=== PATIENT | female | born 1975 | race American Indian/Alaskan Native ===

== ENCOUNTER 2020-05-12 12:01 | Outpatient (CLI) | payer OTHER ==
[~2020-05-12 12:01] MED LIST: LIDOCAINE 2%/EPINEPHRINE 1:200,000 VIAL (20 ML) INFILTRATI SCH
--- NOTE | 2020-05-12 14:31 | Ultrasound Report ---
ULTRASOUND GUIDED LEFT BREAST BIOPSY, 05/12/2020 CLINICAL INFORMATION / INDICATION: Abnormal left breast mass identified on outside imaging.. COMPARISON: Left breast ultrasound, 04/21/2020 outside facility. No outside mammogram provided. PROCEDURE: Risks, benefits, and indications to the procedure were discussed with the patient in detail, includin g bleeding, infection, hematoma formation, and inadequate tissue sampling. The patient agreed to proc eed with both verbal and written consent. A timeout procedure was performed with two patient identifi ers. The breast was prepped and draped in the usual sterile fashion. Lidocaine 1% with and without epineph rine were used for local anesthesia. Under direct ultrasound guidance, multiple core samples were obt ained of the 7 mm mass in the 10:00 position, 12 cm from nipple. A biopsy marker was then placed. Bi opsy device was removed and hemostasis achieved with manual pressure. A sterile dressing was applied to the skin. The patient tolerated the procedure without difficulty. No complications were encountered. Postbiopsy instructions were discussed with the patient and given in writing. Specimens were sent to pathology. IMPRESSION: 1. Technically successful ultrasound guided left breast biopsy for mass at 10:00. Biopsy results are pending and will be reported in an addendum. DIGITAL DIAGNOSTIC MAMMOGRAM WITH CAD , 05/12/2020 CLINICAL INFORMATION / INDICATION: Postprocedure mammogram following clip placement for left breast m ass biopsy TECHNIQUE: Digital left mammographic imaging was performed. This examination was interpreted with the benefit of Computer-aided Detection analysis. COMPARISON: Left breast ultrasound and biopsy performed earlier today FINDINGS: Breast Density: The breasts are heterogeneously dense, which may obscure small masses. Postprocedure mammogram shows the biopsy clip in the 10:00 position of the left breast, middle depth. There is focal asymmetry associated with the clip. IMPRESSION: Successful left breast biopsy for mass at 10:00. Follow up recommendation: Follow-up with pathology results. Post biopsy imaging. A "normal" or negative report should not discourage follow up or biopsy of a clinically significant f inding. A written summary of these findings will be mailed to the patient. The patient will be entered into a mammography reporting system which will generate a reminder letter for the patient's next appointmen t at the appropriate interval. According to the [employer], yearly mammograms are recommended starting at age 40 and continuing as long as a woman is in good health. Breast MRI is recommended for women with an toney roximately 20-25% or greater lifetime risk of breast cancer, including women with a strong family his tory of breast or ovarian cancer and women who have been treated for Hodgkin's disease. Signer Name: Michelle Ryder MD Signed: 05/12/2020 2:26 PM Workstation Name: [id number]
== END 2020-05-12 12:02 | disposition home or self-care (01) ==
LOC: US 12:01
PROVIDERS: ATTEND Surgery
DX: N63.22 Unspecified lump in the left breast, upper inner quadrant (principal); R92.8 Other abnormal and inconclusive findings on diagnostic imaging of breast; D24.2 Benign neoplasm of left breast
CPT/HCPCS: 19083; 77065; 88305; A4648

== ENCOUNTER 2020-12-03 08:07 | Outpatient (CLI) | payer OTHER ==
--- NOTE | 2020-12-03 09:16 | Mammography Report ---
DIGITAL DIAGNOSTIC MAMMOGRAM WITH CAD CONVENTIONAL, 12/03/2020 CLINICAL INFORMATION / INDICATION: Follow-up biopsy TECHNIQUE: Digital bilateral mammographic imaging was performed. This examination was interpreted with the benefit of Computer-aided Detection analysis. COMPARISON : left postbiopsy mammogram 05/12/2020 FINDINGS: Breast Density: There are scattered areas of fibroglandular density. Left biopsy changes are again seen. No suspicious abnormalities are noted. IMPRESSION: No mammographic evidence of malignancy. Follow up recommendation: Routine BI-RADS Category 2: Benign. A "normal" or negative report should not discourage follow up or biopsy of a clinically significant f inding. A written summary of these findings will be mailed to the patient. The patient will be entered into a mammography reporting system which will generate a reminder letter for the patient's next appointmen t at the appropriate interval. According to the [employer], yearly mammograms are recommended starting at age 40 and continuing as long as a woman is in good health. Breast MRI is recommended for women with an toney roximately 20-25% or greater lifetime risk of breast cancer, including women with a strong family his tory of breast or ovarian cancer and women who have been treated for Hodgkin's disease. Signer Name: Bimal Belle MD Signed: 12/03/2020 9:11 AM Workstation Name: [id number]
== END 2020-12-03 08:08 | disposition home or self-care (01) ==
LOC: SPVWC 08:07
PROVIDERS: ATTEND Surgery
DX: R92.8 Other abnormal and inconclusive findings on diagnostic imaging of breast (principal); N64.89 Other specified disorders of breast
CPT/HCPCS: 77066